=== PATIENT | male | born 1965 | race Caucasian/White ===

== ENCOUNTER 2023-10-12 20:09 | Emergency (ER) | payer BC, OTHER ==
[~2023-10-12] VITALS: Ht 175.3 cm; Wt 93.0 kg
[2023-10-12 20:22] VITALS: BP_SYST 120; PULSE 119; RESP 19; TEMP 98.6; O2SAT 93
[2023-10-12 23:00] VITALS: BP_SYST 143; PULSE 113; RESP 20; TEMP 97.6; O2SAT 92
== END 2023-10-12 23:26 | disposition home or self-care (01) ==
LOC: SED 20:09
DX: M96.831 Postprocedural hemorrhage of a musculoskeletal structure following other procedure (principal); I10 Essential (primary) hypertension; E11.9 Type 2 diabetes mellitus without complications; Y83.8 Other surgical procedures as the cause of abnormal reaction of the patient, or of later complication, without mention of misadventure at the time of the procedure; Y92.89 Other specified places as the place of occurrence of the external cause
CPT/HCPCS: 99281